=== PATIENT | female | born 1940 | race Caucasian/White ===

== ENCOUNTER 2018-09-01 07:51 | Day surgery (SDC) | payer MEDICARE, OTHER ==
[~2018-09-01] VITALS: Ht 167.6 cm; Wt 77.3 kg
--- NOTE | ~2018-09-01 | HP ---
PATIENT: MARTHA SCOTT MEDICAL RECORD: [id number] ACCOUNT: [id number] LOCATION:[facility] : 42 ADMISSION DATE: 09/01/18 PCP: DAKOTAH BANKS MD HISTORY AND PHYSICAL EXAMINATION HISTORY OF PRESENT ILLNESS: The patient has a history of a duodenal polyp. Cold biopsies were obtained of the polyp. She is here for an EGD with possible endoscopic mucosal resection and possible treatment with the argon plasma cellar pumper. The risks, possible complications, and alternatives to the procedure were explained to the patient. She elects to proceed. ALLERGIES: CODEINE AND DEMEROL. HOME MEDICATIONS: Celexa, Crestor, levothyroxine, MiraLax, Pepcid, Protonix. SOCIAL HISTORY: Nonsmoker. PAST MEDICAL AND SURGICAL HISTORY: Hypothyroidism, on replacement therapy. History of laparoscopic cholecystectomy. History of arthritis. PHYSICAL EXAMINATION: GENERAL: The patient does not appear acutely ill. She does not appear chronically ill. VITAL SIGNS: Reviewed. EARS: External ears appear normal. EYES: Extraocular movements are intact. NECK: Trachea is midline. CHEST: No intercostal retractions. IMPRESSION: History of a duodenal polyp. PLAN: Will be EGD with polypectomy. TRANSINT:[id number] Voice Confirmation ID: [id number] DOCUMENT ID: [id number] RONALDO FARRIS MD at 1909 CC: [id number] DICTATION DATE: 09/01/18 0943 ELECTRONIC WARFARE OPERATOR: 09/01/18 1149 [facility] 09/01/18 [id number] [place] [address]
--- NOTE | ~2018-09-01 | OP ---
PATIENT NAME: MARTHA SCOTT MEDICAL RECORD: [id number] :42 LOCATION:D.OPS ADMISSION DATE: SURGEON: RONALDO FARRIS MD DATE OF OPERATION: 09/01/2018 PREOPERATIVE DIAGNOSIS: Duodenal bulbar polyp. POSTOPERATIVE DIAGNOSIS: Duodenal bulbar polyp. PROCEDURE: Esophagogastroduodenoscopy with endoscopic mucosal resection and polypectomy. SURGEON: Ronaldo Farris MD COLD HEADER OPERATOR: None. BLOOD LOSS: Minimal. ANESTHESIA: IV sedation. COMPLICATIONS: None. The risks, possible complications, and alternatives to procedure were explained to the patient. She elects to proceed. ENDOSCOPIC COURSE: The patient was conveyed to endoscopy suite electively on 09/01/2018. IV sedation was induced by the anesthesia staff. A bite block was inserted. A gastroscope was inserted into the mouth. It was advanced easily into the hypopharynx. The esophagus was easily intubated as were the stomach and the duodenum. Upon withdrawal, retroflexed and angulus views were obtained. I then advanced into the duodenal bulb. The polyp was somewhat difficult to identify as it was directly behind the pylorus. I was unable to grasp the polyp. Unable to snare the polyp initially. I advanced a sclerotherapy needle. At the base of the polyp, I injected Eleview. This caused the polyp to lift up. We were able to then get snare and snare the polyp. We grasped the snared portion of the polyp and withdrew it through the endoscope. I then took the hot biopsy forceps and cauterized the base of the polypoid tissue. The endoscope was then withdrawn under direct vision. I will see the patient in my office in 2-3 weeks. Depending on the pathology of the polyp, the patient may require a repeat endoscopy or may not require a repeat endoscopy. TRANSINT:[id number] Voice Confirmation ID: [id number] DOCUMENT ID: [id number] RONALDO FARRIS MD at 1909 CC: HARMAN DOWNS and DAKOTAH BANKS MD [id number] DICTATION DATE: 09/01/18 1007 STRINGED INSTRUMENT ASSEMBLER: 09/01/18 1145 [facility] 09/01/[address] [facility] [address] [place] [address]
[2018-09-01 08:32] LABS: BASOPHILS 0.3 % (0-2); HEMATOCRIT 41.4 % (36.0-48.0); HEMOGLOBIN 13.6 g/dL (12-16); IMMATURE GRANULOCYTES 0.2 % (0-5); LYMPHOCYTES 25.4 % (15-50); MCH 29.5 pg (26.0-34.0); MCHC 32.9 g/dL (31.0-37.0); MCV 89.8 fL (80.0-100.0); MEAN PLATELET VOLUME 9.7 fL (7.4-10.4); MONOCYTES 6.9 % (2-11); NEUTROPHILS 66.2 % (40-80); PLATELET COUNT 147 10x3/uL (130-400); RBC 4.61 10x6/uL (4.00-5.40); RDW 13.9 % (11.5-14.5); WBC 6.2 10x3/uL (4.8-10.8)
[2018-09-01 08:36] LABS: ANION GAP 10.7 mmol/L (8-16); CALCIUM 8.7 mg/dL (8.5-10.1); CARBON DIOXIDE 29.8 mmol/L (21.0-32.0); CREATININE - SERUM 0.8 mg/dL (0.6-1.3); POTASSIUM - SERUM 3.5 mmol/L (3.5-5.1)
[2018-09-01] MEDS ORDERED: PROTONIX40 MG PO (08:41)
[2018-09-01] MEDS ORDERED: LEVOXYL25 MCG (08:41)
[2018-09-01] MEDS ORDERED: CELEXA40 MG PO (08:41)
[2018-09-01] MEDS ORDERED: CRESTOR20 MG PO (08:42)
[2018-09-01] MEDS ORDERED: MIRALAX17 GM PO (08:43)
[2018-09-01] MEDS ORDERED: PEPCID AC20 MG PO (08:43)
[2018-09-01 09:09] VITALS: BP 147/66; Ht 167.6 cm; Wt 77.3 kg
== END 2018-09-01 10:55 | disposition home or self-care (01) ==
LOC: D.OPS 07:51
PROVIDERS: Anesthesiology
DX: K31.7 Polyp of stomach and duodenum (principal); E03.9 Hypothyroidism, unspecified; M19.90 Unspecified osteoarthritis, unspecified site; Z79.899 Other long term (current) drug therapy; Z88.5 Allergy status to narcotic agent; Z01.812 Encounter for preprocedural laboratory examination